=== PATIENT | female | born 1945 | race Hispanic/Latino ===

== ENCOUNTER 2017-05-30 23:28 | Emergency (ER) | payer MEDICARE ==
[2017-05-31] MEDS ORDERED: TRAMADOL /APAP 37.5MG/325MG TAB ONE (00:48)
== END 2017-05-31 03:01 | disposition home or self-care (01) ==
LOC: EDH 23:28
DX: S16.1XXA Strain of muscle, fascia and tendon at neck level, initial encounter (principal); S50.02XA Contusion of left elbow, initial encounter; S00.83XA Contusion of other part of head, initial encounter; I10 Essential (primary) hypertension; E11.9 Type 2 diabetes mellitus without complications; E78.5 Hyperlipidemia, unspecified; I48.91 Unspecified atrial fibrillation; G30.9 Alzheimer's disease, unspecified; F02.80 Dementia in other diseases classified elsewhere, unspecified severity, without behavioral disturbance, psychotic disturbance, mood disturbance, and anxiety; W18.39XA Other fall on same level, initial encounter; Y93.01 Activity, walking, marching and hiking; Y92.89 Other specified places as the place of occurrence of the external cause; Y99.8 Other external cause status
CPT/HCPCS: 70450; 72125; 73080

== ENCOUNTER → 2017-07-02 | Outpatient (CLI) | payer MEDICARE | END | disposition home or self-care (01) | LOC: RAH 09:59 | PROVIDERS: ATTEND Internal Medicine Gastroenterology | DX: K30 Functional dyspepsia (principal) | CPT/HCPCS: 78264; A9541 ==

== ENCOUNTER → 2017-08-12 | Outpatient (CLI) | payer MEDICARE | END | disposition home or self-care (01) | LOC: RAH 07:53 | PROVIDERS: ATTEND Internal Medicine Gastroenterology | DX: N28.1 Cyst of kidney, acquired (principal); K74.60 Unspecified cirrhosis of liver | CPT/HCPCS: 76700; 93975 ==

== ENCOUNTER 2018-02-05 16:47 | Emergency (ER) | payer MEDICARE ==
[2018-02-05 17:03] LABS: BASOPHILS % (AUTO) 2.8 % (0.0-5.0); EOSINOPHILS % (AUTO) 4.3 % (0.0-8.0); HEMATOCRIT 32.1 % (36-48); MEAN CORPUSCULAR HEMOGLOBIN 26.6 pg (27.0-33.0); MEAN CORPUSCULAR VOLUME 83.1 fL (79-99); MONOCYTES % (AUTO) 11.1 % (3.0-13.0); NEUTROPHILS % (AUTO) 47.8 % (40.0-77.0); PLATELET COUNT (AUTO) 124 K/uL (130-400); RED BLOOD CELL COUNT(AUTO) 3.86 MIL/uL (4.00-5.50); RED CELL DISTRIBUTION WIDTH 16.4 % (11.0-15.5); WHITE BLOOD COUNT (AUTO) 2.8 K/uL (4.8-10.8)
[2018-02-05 17:25] LABS: APPEARANCE,URINE Clear (CLEAR); BILIRUBIN,URINE Negative (NEGATIVE); COLOR,URINE Yellow (YELLOW); GLUCOSE, URINE (UA) TRACE mg/dL (NEGATIVE); KETONES,URINE Negative (NEGATIVE); LEUKOCYTE ESTERASE ,URINE Negative (NEGATIVE); NITRATE,URINE Negative (NEGATIVE); OCCULT BLOOD,URINE Negative (NEGATIVE); PROTEIN,URINE POS 2+ (NEGATIVE); UROBILINOGEN,URINE 0.2 mg/dL (0.2-1.0)
[2018-02-05 17:28] LABS: BASOPHILS % (MANUAL) 1 % (0-2); EOSINOPHILS % (MANUAL) 4 % (1-6); LYMPHOCYTES % (MANUAL) 36 % (22-44); MONOCYTES % (MANUAL) 6 % (2-9); SEGMENTED NEUTROPHILS % 53 % (40-70)
[2018-02-05 17:29] LABS: MAN.DIFF COMMENT-IMPRESSION MANUAL DIFFERENTIAL
[2018-02-05 17:41] LABS: BACTERIA,URINE Rare /HPF (None Seen); RBC,URINE 0-1 /HPF (0-1); SQUAMOUS EPITHELIAL CELL,UR Few /HPF (0-2); WBC,URINE 0-1 /HPF (0-1)
[2018-02-05 18:10] LABS: POTASSIUM 4.1 mmol/L (3.5-5.1)
[2018-02-05 18:17] LABS: ALBUMIN 2.9 g/dL (3.5-5.0); BILIRUBIN,TOTAL 0.5 mg/dL (0.2-1.0); TOTAL PROTEIN, SERUM 6.4 g/dL (6.0-8.3)
[2018-02-05] MEDS ORDERED: ONDANSETRON HCL 4 MG/2 ML VIAL ONE (19:14)
[2018-02-05] MEDS ORDERED: MORPHINE SULFATE 4 MG/1ML SYG ONE (19:15)
== END 2018-02-05 19:25 | disposition home or self-care (01) ==
LOC: EDH 16:47
DX: K52.9 Noninfective gastroenteritis and colitis, unspecified (principal); I48.91 Unspecified atrial fibrillation; G30.9 Alzheimer's disease, unspecified; F02.80 Dementia in other diseases classified elsewhere, unspecified severity, without behavioral disturbance, psychotic disturbance, mood disturbance, and anxiety; E11.9 Type 2 diabetes mellitus without complications; E78.5 Hyperlipidemia, unspecified; I10 Essential (primary) hypertension; G20 Parkinson's disease
CPT/HCPCS: 36415; 74176; 80053; 81001; 83690; 85025; 96374; 96375; 99285; J2270; J2405

== ENCOUNTER 2018-02-22 06:26 | Day surgery (SDC) | payer MEDICARE ==
[2018-02-22] VITALS (8 sets, daily range): BP systolic 130–170; BP diastolic 53–83
[~2018-02-22] VITALS: Ht 160 cm; Wt 102.4 kg
[~2018-02-22 06:26] MED LIST: SODIUM CHLORIDE 0.9% 1000ML 1,000 ML IV ONE
[2018-02-22 07:46] LABS: INR 1.22 (0.85-1.15); PARTIAL THROMBOPLASTIN TIME 31.2 SEC (26.3-35.5); PROTHROMBIN TIME 12.8 SEC (9.6-11.6)
[2018-02-22] MEDS ORDERED: FERS325 PO (08:14)
[2018-02-22] MEDS ORDERED: aricept PO (08:14)
[2018-02-22] MEDS ORDERED: WARF-57 PO (08:14)
[2018-02-22] MEDS ORDERED: LOTE55OS OU (08:14)
[2018-02-22] MEDS ORDERED: RIFA550T PO (08:14)
[2018-02-22] MEDS ORDERED: OXYB5TAB10 PO (08:14)
[2018-02-22] MEDS ORDERED: GLIP5TAB11 PO (08:14)
[2018-02-22] MEDS ORDERED: restasis OP (08:14)
[2018-02-22] MEDS ORDERED: CARB1TAB18 PO (08:14)
[2018-02-22] MEDS ORDERED: METF-444 PO (08:14)
[2018-02-22] MEDS ORDERED: PANT40TA25 PO (08:14)
[2018-02-22] MEDS ORDERED: VALS1TAB73 PO (08:14)
[2018-02-22] MEDS ORDERED: LORA10CA9 PO (08:14)
[2018-02-22] MEDS ORDERED: SUCR1TAB2 PO (08:14)
[2018-02-22] MEDS ORDERED: DONE5TAB26 PO (08:14)
[2018-02-22] MEDS ORDERED: meclizine (08:14)
[2018-02-22] MEDS ORDERED: LACT10SO PO (08:14)
[2018-02-22] MEDS ORDERED: pataday OP (08:14)
[2018-02-22] MEDS ORDERED: trintellix PO (08:14)
[2018-02-22] MEDS ORDERED: [UNRECOGNIZED DRUG - OTHER] PO (08:14)
[2018-02-22] MEDS ORDERED: ALPR2TAB7 PO (08:14)
[2018-02-22] MEDS ORDERED: namenda PO (08:14)
[2018-02-22] MEDS ORDERED: ASEN5TAB8 PO (08:14)
[2018-02-22] MEDS ORDERED: ERGO500014 PO (08:14)
[2018-02-22] MEDS ORDERED: PAZEO (08:14)
[2018-02-22] MEDS ORDERED: HYDR-4060 PO (08:14)
[2018-02-22] MEDS ORDERED: PROPOFOL 10 MG/ML 20ML VIAL IV ONE (08:15)
[2018-02-22] MEDS ORDERED: IPRATROPIUM/ALBUTEROL SULFATE 3 ML SOLUTION IH ONE (09:07)
[2018-03-28] MEDS ORDERED: CARAL PO (13:09)
[2018-03-28] MEDS ORDERED: OLOP2.5D5 OU (13:09)
[2018-03-28] MEDS ORDERED: ALPR1TAB7 PO (13:09)
[2018-03-28] MEDS ORDERED: POLY10DR22 OU (13:41)
[2018-03-28] MEDS ORDERED: WARF7.5T49 PO (13:44)
== END 2018-02-22 09:25 | disposition home or self-care (01) ==
LOC: DAH 06:26 → ENDO 06:26
PROVIDERS: ATTEND Internal Medicine Gastroenterology
DX: I85.00 Esophageal varices without bleeding (principal); K74.60 Unspecified cirrhosis of liver; K29.50 Unspecified chronic gastritis without bleeding; K31.7 Polyp of stomach and duodenum; K31.89 Other diseases of stomach and duodenum; Z79.899 Other long term (current) drug therapy; E78.00 Pure hypercholesterolemia, unspecified; I10 Essential (primary) hypertension; F41.9 Anxiety disorder, unspecified; J45.909 Unspecified asthma, uncomplicated; F32.9 Major depressive disorder, single episode, unspecified; G20 Parkinson's disease; G30.9 Alzheimer's disease, unspecified; F02.80 Dementia in other diseases classified elsewhere, unspecified severity, without behavioral disturbance, psychotic disturbance, mood disturbance, and anxiety; Z90.710 Acquired absence of both cervix and uterus; Z98.890 Other specified postprocedural states; E11.36 Type 2 diabetes mellitus with diabetic cataract; Z79.84 Long term (current) use of oral hypoglycemic drugs
CPT/HCPCS: 36415; 43239; 43244; 43251; 82948 ×2; 85610; 85730; 88305; 88342; 93005; 94640; A4606; J2704; J7030; 43235

== ENCOUNTER 2018-03-01 08:08 | Emergency (ER) | payer MEDICARE ==
[~2018-03-01 08:08] MED LIST changes: +ALPR2TAB7 PO; +ASEN5TAB8 PO; +CARB1TAB18 PO; +DONE5TAB26 PO; +ERGO500014 PO; +FERS325 PO; +GLIP5TAB11 PO; +HYDR-4060 PO; +LACT10SO PO; +LORA10CA9 PO; +LOTE55OS OU; +METF-444 PO; +OXYB5TAB10 PO; +PANT40TA25 PO; +PAZEO; +RIFA550T PO; -SODIUM CHLORIDE 0.9% 1000ML 1,000 ML IV ONE; +SUCR1TAB2 PO; +VALS1TAB73 PO; +WARF-57 PO; +[UNRECOGNIZED DRUG - OTHER] PO; +aricept PO; +meclizine; +namenda PO; +pataday OP; +restasis OP; +trintellix PO
[2018-03-01 09:12] LABS: CREATININE 0.8 mg/dL (0.5-1.5); POTASSIUM 5.6 mmol/L (3.5-5.1)
[2018-03-01 09:21] LABS: BILIRUBIN,TOTAL 0.8 mg/dL (0.2-1.0); TOTAL PROTEIN, SERUM 6.7 g/dL (6.0-8.3)
[2018-03-01 09:39] LABS: BASOPHILS % (AUTO) 1.6 % (0.0-5.0); HEMATOCRIT 31.5 % (36-48); LYMPHOCYTES % (AUTO) 32.1 % (21.0-51.0); MEAN CORPUSCULAR HEMOGLOBIN 24.8 pg (27.0-33.0); MEAN CORPUSCULAR HGB CONC 31.3 g/dL (32.0-36.0); MEAN CORPUSCULAR VOLUME 79.1 fL (79-99); MONOCYTES % (AUTO) 10.7 % (3.0-13.0); NEUTROPHILS % (AUTO) 52.6 % (40.0-77.0); NUCLEATED RED BLOOD CELLS 0.1 % (0.0-0.19); PLATELET COUNT (AUTO) 98 K/uL (130-400); RED BLOOD CELL COUNT(AUTO) 3.99 MIL/uL (4.00-5.50); RED CELL DISTRIBUTION WIDTH 17.9 % (11.0-15.5); WHITE BLOOD COUNT (AUTO) 3.7 K/uL (4.8-10.8)
[2018-03-01 09:47] LABS: AMYLASE 106 U/L (25-115); LIPASE 834 U/L (114-286)
[2018-03-01 09:50] LABS: APPEARANCE,URINE Clear (CLEAR); BILIRUBIN,URINE Negative (NEGATIVE); COLOR,URINE Yellow (YELLOW); GLUCOSE, URINE (UA) Negative (NEGATIVE); KETONES,URINE Negative (NEGATIVE); LEUKOCYTE ESTERASE ,URINE Negative (NEGATIVE); NITRATE,URINE Negative (NEGATIVE); OCCULT BLOOD,URINE Negative (NEGATIVE); PROTEIN,URINE 300 (NEGATIVE)
[2018-03-01] MEDS ORDERED: LIDOCAINE HCL 2% VISCOUS 15 ML UDCUP ONE (09:52)
[2018-03-01] MEDS ORDERED: ONDANSETRON ODT 4 MG TAB ONE (09:52)
[2018-03-01] MEDS ORDERED: MAG HYDROX/AL HYDROX/SIMETH ES 30 ML SUSP UDCUP ONE (09:52)
[2018-03-01 09:53] LABS: INR 1.17 (0.85-1.15); PARTIAL THROMBOPLASTIN TIME 30.1 SEC (26.3-35.5); PROTHROMBIN TIME 12.2 SEC (9.6-11.6)
[2018-03-01 10:01] LABS: BACTERIA,URINE None Seen /HPF (None Seen); RBC,URINE None Seen /HPF (0-1); SQUAMOUS EPITHELIAL CELL,UR 0-2 /HPF (0-2); WBC,URINE None Seen /HPF (0-1)
== END 2018-03-01 17:59 | disposition home or self-care (01) ==
LOC: EDH 08:08
DX: K85.90 Acute pancreatitis without necrosis or infection, unspecified (principal); E11.9 Type 2 diabetes mellitus without complications; I10 Essential (primary) hypertension; E78.5 Hyperlipidemia, unspecified; I48.91 Unspecified atrial fibrillation; G30.9 Alzheimer's disease, unspecified; F02.80 Dementia in other diseases classified elsewhere, unspecified severity, without behavioral disturbance, psychotic disturbance, mood disturbance, and anxiety; G20 Parkinson's disease
CPT/HCPCS: 36415; 74176; 80053; 81001; 82150; 82550; 82948; 83690; 84484; 85025; 85610; 85730; 93005; 99285; G0481

== ENCOUNTER 2018-03-29 07:35 | Day surgery (SDC) | payer MEDICARE ==
[~2018-03-29] VITALS: Ht 157.5 cm; Wt 118.4 kg
[~2018-03-29 07:35] MED LIST changes: +ALPR1TAB7 PO; -ALPR2TAB7 PO; +CARAL PO; +OLOP2.5D5 OU; -PANT40TA25 PO; -PAZEO; +POLY10DR22 OU; +SODIUM CHLORIDE 0.9% 1000ML 1,000 ML IV ONE; -SUCR1TAB2 PO; -WARF-57 PO; +WARF7.5T49 PO; -aricept PO; -meclizine; -namenda PO
[2018-03-29 08:33] VITALS: BP 150/63
[2018-03-29 08:44] LABS: INR 1.3 (0.85-1.15); PROTHROMBIN TIME 13.6 SEC (9.6-11.6)
[2018-03-29 10:03] VITALS: BP 157/68
[2018-03-29 10:08] VITALS: BP 148/59
[2018-03-29 10:13] VITALS: BP 157/68
== END 2018-03-29 10:34 | disposition home or self-care (01) ==
LOC: DAH 07:35 → ENDO 07:35
PROVIDERS: ATTEND Internal Medicine Gastroenterology
DX: K29.50 Unspecified chronic gastritis without bleeding (principal); I85.00 Esophageal varices without bleeding; I86.4 Gastric varices; K76.6 Portal hypertension; K31.89 Other diseases of stomach and duodenum; Z68.42 Body mass index [BMI] 45.0-49.9, adult; Z79.899 Other long term (current) drug therapy; Z79.4 Long term (current) use of insulin; E11.9 Type 2 diabetes mellitus without complications; E78.00 Pure hypercholesterolemia, unspecified; I10 Essential (primary) hypertension; Z98.49 Cataract extraction status, unspecified eye; F41.9 Anxiety disorder, unspecified; J45.909 Unspecified asthma, uncomplicated; F32.9 Major depressive disorder, single episode, unspecified; G20 Parkinson's disease; G30.9 Alzheimer's disease, unspecified; F02.80 Dementia in other diseases classified elsewhere, unspecified severity, without behavioral disturbance, psychotic disturbance, mood disturbance, and anxiety; E55.9 Vitamin D deficiency, unspecified; Z86.73 Personal history of transient ischemic attack (TIA), and cerebral infarction without residual deficits; Z85.028 Personal history of other malignant neoplasm of stomach; K21.0 Gastro-esophageal reflux disease with esophagitis; K74.60 Unspecified cirrhosis of liver; K72.90 Hepatic failure, unspecified without coma; K52.3 Indeterminate colitis; I44.4 Left anterior fascicular block
CPT/HCPCS: 36415; 43239; 82948 ×2; 85610; 88305; 88312; 88342; 93005; A4606; J7030

== ENCOUNTER → 2018-08-29 | Outpatient (CLI) | payer MEDICARE ==
[~2018-08-29] MED LIST changes: -SODIUM CHLORIDE 0.9% 1000ML 1,000 ML IV ONE
== END | disposition home or self-care (01) ==
LOC: RAH 08:52
PROVIDERS: ATTEND Internal Medicine Gastroenterology
DX: N28.1 Cyst of kidney, acquired (principal); R16.1 Splenomegaly, not elsewhere classified; Z90.49 Acquired absence of other specified parts of digestive tract
CPT/HCPCS: 76700; 93975

== ENCOUNTER → 2018-12-29 | Outpatient (CLI) | payer MEDICARE | END | disposition home or self-care (01) | LOC: OIH 16:10 | PROVIDERS: ATTEND Internal Medicine | DX: M47.816 Spondylosis without myelopathy or radiculopathy, lumbar region (principal) | CPT/HCPCS: 72100 ==